=== PATIENT | female | born 1985 | race Two or more races ===

== ENCOUNTER 2018-09-25 22:10 | Emergency (ER) | payer OTHER ==
[~2018-09-25] VITALS: Ht 165.1 cm; Wt 84.0 kg
[2018-09-25 22:55] LABS: BASO # 0.1 x10^3/uL (0.0-0.2); BASO % 1 % (0-3); EOS # 0.2 x10^3/uL (0.0-0.7); EOS % 2 % (0-3); HEMATOCRIT 39.4 % (36.0-47.0); HEMOGLOBIN 14.1 g/dL (12.0-15.5); LYMPH % 27 % (24-48); MEAN CORPUSCULAR HEMOGLOBIN 31 pg (25-35); MEAN CORPUSCULAR HGB CONC 36 g/dL (31-37); MEAN CORPUSCULAR VOLUME 86 fL (79-100); MONO # 0.7 x10^3/uL (0.0-1.1); MONO % 6 % (0-9); NEUT # 7.2 x10^3uL (1.8-7.7); NEUT % 64 % (31-73); PLATELET COUNT 234 x10^3/uL (140-400); RED BLOOD COUNT 4.58 x10^6/uL (3.50-5.40); WHITE BLOOD COUNT 11.3 x10^3/uL (4.0-11.0)
[2018-09-25 23:00] LABS: BACTERIA,URINE FEW /HPF (0-FEW); BILIRUBIN,URINE NEG (NEG); CLARITY,URINE HAZY; COLOR,URINE YELLOW; GLUCOSE,URINE NEG (NEG); NITRITE,URINE NEG (NEG); RBC,URINE 0 /HPF (0-2); SQUAMOUS EPITHELIAL CELL,UR MOD /LPF; UROBILINOGEN,URINE 0.2 mg/dL (0.2 mg/dL)
[2018-09-25] MEDS ORDERED: MECLIZINE 12.5 MG TABLET. PO PRN (23:00)
[2018-09-25] MEDS ORDERED: IV NORMAL SALINE 1,000ML 1,000 ML IV SCH (23:00)
[2018-09-25] MEDS ORDERED: ONDANSETRON PF 4 MG/2 ML VIAL. IV ONE (23:00)
[2018-09-25 23:01] LABS: PREG TEST PT QUAL NEGATIVE (NEG)
--- NOTE | 2018-09-25 23:04 | PHYS DOC ---
Past History Past Medical History: Diabetes, Fibromyalgia, Migraines Past Surgical History: No Surgical History Alcohol Use: Occasionally Drug Use: None Adult General Chief Complaint Chief Complaint: NAUSEA/VOMITING/DIARRHEA HPI HPI Patient is a 33-year-old female who presents with complaint of 2 day history of dizziness. Patient states that onset of symptoms was very sudden and states that she feels like she is all over when she stands up. She states that when the dizziness really kicks and she gets nauseated and has had a few episodes of vomiting as well. She also admits to some loose stools. She denies any fever. She denies any headache and has had no lateralizing weakness or other neurological deficits. Patient states that she has had vertigo one time in the past but that episode was worse than this occasion. Review of Systems Review of Systems Constitutional: Denies fever or chills [] Eyes: Denies change in visual acuity, redness, or eye pain [] Respiratory: Denies cough or shortness of breath [] Cardiovascular: No additional information not addressed in HPI [] GI: Denies abdominal pain. Admits to nausea, vomiting and diarrhea [] Neurologic: Denies headache, focal weakness or sensory changes. Complains of dizziness. [] All other systems were reviewed and found to be within normal limits, except as documented in this note. Current Medications Current Medications Current Medications Medications (Trade) Dose Ordered Sig/Trevor Start Time Stop Time Status Last Admin Dose Admin Meclizine HCl (Antivert) 25 mg PRN Q6HRS PRN 09/25/18 23:00 Ondansetron HCl (Zofran) 4 mg 1X ONCE 09/25/18 23:00 09/25/18 23:01 DC Sodium Chloride 1,000 ml @ 1,000 mls/hr Q1H 09/25/18 23:00 09/25/18 23:59 Allergies Allergies Allergies Coded Allergies Type Severity Reaction Last Updated Verified morphine Allergy Severe Unknown 09/25/18 Yes Cephalosporins Allergy Intermediate Unknown 09/25/18 Yes hydrocodone Allergy Intermediate Unknown 09/25/18 Yes Penicillins Allergy Unknown Swelling 09/25/18 Yes Physical Exam Physical Exam Constitutional: Well developed, well nourished, no acute distress, non-toxic appearance. [] HENT: Normocephalic, atraumatic, bilateral external ears normal, oropharynx moist, no oral exudates, nose normal. [] Eyes: PERRLA, EOMI, conjunctiva normal, no discharge. [] Neck: Normal range of motion, no tenderness, supple, no stridor. [] Cardiovascular:Heart rate regular rhythm, no murmur [] Lungs & Thorax: Bilateral breath sounds clear to auscultation [] Abdomen: Bowel sounds normal, soft, no tenderness. [] Skin: Warm, dry, no erythema, no rash. [] Extremities: No tenderness, no cyanosis, no clubbing, ROM intact, no edema. [] Neurologic: Alert and oriented X 3, no focal deficits noted. [] Current Patient Data Vital Signs Vital Signs Date Time Temp Pulse Resp B/P (MAP) Pulse Ox O2 Delivery O2 Flow Rate FiO2 09/25/18 22:10 98.4 93 18 97 Room Air Lab Results Laboratory Tests Test 09/25/18 22:24 09/25/18 22:37 Urine Collection Type Unknown Urine Color Yellow Urine Clarity Hazy Urine pH 5.0 Urine Specific [place] 1.025 Urine Protein Neg (NEG-TRACE) Urine Glucose (UA) Neg mg/dL (NEG) Urine Ketones (Stick) Neg mg/dL (NEG) Urine Blood Neg (NEG) Urine Nitrite Neg (NEG) Urine Bilirubin Neg (NEG) Urine Urobilinogen Dipstick 0.2 mg/dL (0.2 mg/dL) Urine Leukocyte Esterase Trace (NEG) Urine RBC 0 /HPF (0-2) Urine WBC 1-4 /HPF (0-4) Urine Squamous Epithelial Cells Mod /LPF Urine Bacteria Few /HPF (0-FEW) White Blood Count 11.3 x10^3/uL (4.0-11.0) H Red Blood Count 4.58 x10^6/uL (3.50-5.40) Hemoglobin 14.1 g/dL (12.0-15.5) Hematocrit 39.4 % (36.0-47.0) Mean Corpuscular Volume 86 fL (79-100) Mean Corpuscular Hemoglobin 31 pg (25-35) Mean Corpuscular Hemoglobin Concent 36 g/dL (31-37) Red Cell Distribution Width 13.0 % (11.5-14.5) Platelet Count 234 x10^3/uL (140-400) Neutrophils (%) (Auto) 64 % (31-73) Lymphocytes (%) (Auto) 27 % (24-48) Monocytes (%) (Auto) 6 % (0-9) Eosinophils (%) (Auto) 2 % (0-3) Basophils (%) (Auto) 1 % (0-3) Neutrophils # (Auto) 7.2 x10^3uL (1.8-7.7) Lymphocytes # (Auto) 3.0 x10^3/uL (1.0-4.8) Monocytes # (Auto) 0.7 x10^3/uL (0.0-1.1) Eosinophils # (Auto) 0.2 x10^3/uL (0.0-0.7) Basophils # (Auto) 0.1 x10^3/uL (0.0-0.2) Serum Test, Qualitative Negative (NEG) EKG EKG [] Radiology/Procedures Radiology/Procedures [] Course & Med Decision Making Course & Med Decision Making Pertinent Labs and Imaging studies reviewed. (See chart for details) [] Dragon Disclaimer Dragon Disclaimer This electronic medical record was generated, in whole or in part, using a voice recognition dictation system. Departure Departure: Impression: Primary Impression: Benign paroxysmal vertigo Additional Impression: Dehydration Disposition: HOME, SELF-CARE Condition: STABLE Referrals: PCP,NO (PCP) Patient Instructions: Benign Positional Vertigo, Dehydration, Adult Scripts Scopolamine (TRANSDERM-SCOP) 1 Each Patch.td72 1 PATCH TP Q3DAYS PRN for DIZZINESS, #4 PATCH Prov: GABRIELLE DE LA O Jr. DO 09/25/18 Meclizine Hcl (MECLIZINE HCL) 25 Mg Tablet 1 TAB PO TID PRN for DIZZINESS, #30 TAB Prov: GABRIELLE DE LA O Jr. DO 09/25/18 Ondansetron Hcl (ZOFRAN) 4 Mg Tablet 4 MG PO Q6HRS PRN for NAUSEA, #12 TAB Prov: GABRIELLE DE LA O Jr. DO 09/25/18 Problem Qualifiers Primary Impression: Benign paroxysmal vertigo Laterality: unspecified laterality Qualified Codes: H81.10 - Benign paroxysmal vertigo, unspecified ear GABRIELLE DE LA O Jr. DO Sep 25, 2018 23:04
[2018-09-25 23:05] LABS: ALBUMIN 3.4 g/dL (3.4-5.0); ALBUMIN/GLOBULIN RATIO 0.9 (1.0-1.7); CREATININE 0.6 mg/dL (0.6-1.0); GFR 115.1; POTASSIUM 3.6 mmol/L (3.5-5.1); TOTAL BILIRUBIN 0.2 mg/dL (0.2-1.0)
[2018-09-25] MEDS ORDERED: MECL25TA3 PO (23:44)
[2018-09-25] MEDS ORDERED: SCOP1PAT11 TP (23:44)
[2018-09-25] MEDS ORDERED: ONDA4TAB7 PO (23:44)
[2018-09-25] MEDS ORDERED: SCOPOLAMINE 1.5MG PATCH. TD ONE (23:55)
[2018-09-25] MEDS ORDERED: diphenhydrAMINE 50 MG/ML VIAL IVP ONE (23:55)
[2018-09-25] MEDS ORDERED: METOCLOPRAMIDE HCL 10 MG/2 ML VIAL. IV ONE (23:55)
[2018-09-26 00:31] VITALS: BP 117/70
== END 2018-09-26 00:30 | disposition home or self-care (01) ==
LOC: ER 22:10
DX: H81.10 Benign paroxysmal vertigo, unspecified ear (principal); E86.0 Dehydration; E11.9 Type 2 diabetes mellitus without complications; M79.7 Fibromyalgia; G43.909 Migraine, unspecified, not intractable, without status migrainosus; Z88.5 Allergy status to narcotic agent; Z88.1 Allergy status to other antibiotic agents; Z88.0 Allergy status to penicillin
CPT/HCPCS: 36415; 80053; 81001; 84703; 85025; 87086; 96361; 96374; 96375; 99283; J1200; J2060; J2405; J2765; J8597; J7030

== ENCOUNTER 2018-12-03 08:07 | Emergency (ER) | payer OTHER ==
[~2018-12-03] VITALS: Ht 165.1 cm; Wt 83.3 kg
[2018-12-03 08:07] VITALS: BP 137/88
[~2018-12-03 08:07] MED LIST: MECL25TA3 PO; ONDA4TAB7 PO; SCOP1PAT11 TP
[2018-12-03] MEDS ORDERED: D-ME118S2 PO (08:47)
[2018-12-03] MEDS ORDERED: BENZ100C PO (08:47)
--- NOTE | 2018-12-03 08:48 | PHYS DOC ---
Past History Past Medical History: Diabetes, Fibromyalgia, Migraines Past Surgical History: No Surgical History Smoking: Non-smoker Alcohol Use: Occasionally Drug Use: None Adult General Chief Complaint Chief Complaint: SORE THROAT HPI HPI Patient is a 33-year-old female presents complaining of 4 days of sore throat. She has had some nasal congestion. A cough. Maximum temperature was 100.7. No relief with home ibuprofen and acetaminophen. Symptoms of been getting worse over time. Nonproductive cough. Patient was seen by her primary care physician who diagnosed her with an upper respiratory infection.[] Review of Systems Review of Systems Constitutional: Denies chills [] Eyes: Denies change in visual acuity, redness, or eye pain [] HENT: See history of present illness[] Respiratory: Denies shortness of breath on a see history of present illness [] Cardiovascular: No chest pain or palpitations[] GI: Denies abdominal pain, nausea, vomiting, bloody stools or diarrhea [] : Denies dysuria or hematuria [] Musculoskeletal: Denies back pain or joint pain [] Integument: Denies rash or skin lesions [] Neurologic: Denies headache, focal weakness or sensory changes [] Endocrine: Denies polyuria or polydipsia [] All other systems were reviewed and found to be within normal limits, except as documented in this note. Allergies Allergies Allergies Coded Allergies Type Severity Reaction Last Updated Verified morphine Allergy Severe Unknown 09/25/18 Yes Cephalosporins Allergy Intermediate Unknown 09/25/18 Yes hydrocodone Allergy Intermediate Unknown 09/25/18 Yes Penicillins Allergy Unknown Swelling 09/25/18 Yes Uncoded Allergies Type Severity Reaction Last Updated Verified adhesives Allergy Severe Rash 09/25/18 Physical Exam Physical Exam Constitutional: Well developed, well nourished, no acute distress, non-toxic appearance. [] HENT: Normocephalic, atraumatic, bilateral external ears normal, oropharynx moist, no oral exudates, nose with clear rhinorrhea, no sinus tenderness to percussion, posterior oral pharyngeal streaking is present.. [] Eyes: PERRLA, EOMI, conjunctiva normal, no discharge. [] Neck: Normal range of motion, no tenderness, supple, no stridor. [] Cardiovascular:Heart rate regular rhythm, no murmur [] Lungs & Thorax: Bilateral breath sounds clear to auscultation [] Abdomen: Bowel sounds normal, soft, no tenderness, no hepato-or splenomegaly, no pulsatile masses. [] Skin: Warm, dry, no erythema, no rash. [] Back: No tenderness, no CVA tenderness. [] Extremities: No tenderness, no cyanosis, no clubbing, ROM intact, no edema. [] Neurologic: Alert and oriented X 3, normal motor function, normal sensory function, no focal deficits noted. [] Psychologic: Affect normal, judgement normal, mood normal. [] Current Patient Data Vital Signs Vital Signs Date Time Temp Pulse Resp B/P (MAP) Pulse Ox O2 Delivery O2 Flow Rate FiO2 12/03/18 08:07 99.3 99 16 100 Room Air EKG EKG [] Radiology/Procedures Radiology/Procedures [] Course & Med Decision Making Course & Med Decision Making Pertinent Labs and Imaging studies reviewed. (See chart for details) Medical decision making: There is no evidence of meningitis, encephalitis, retropharyngeal abscess, peritonsillar abscess, nor systemic toxicity. Negative strep test. This seems to be more of an upper respiratory infection. We will provide symptomatic and supportive care. Chest chest findings with patient who voiced understanding. All questions were answered. She was discharged in improved condition.[] Dragon Disclaimer Dragon Disclaimer This electronic medical record was generated, in whole or in part, using a voice recognition dictation system. Departure Departure: Impression: Primary Impression: Upper respiratory infection Disposition: 01 HOME, SELF-CARE Condition: IMPROVED Referrals: ELIZA VILLAREAL MD (PCP) Follow-up in 2 days Patient Instructions: Upper Respiratory Infection, Adult Additional Instructions: Drink plenty fluids. Take medication as prescribed, as needed for symptom relief. Return to the ER if worsening pain, difficulty swallowing, difficulty breathing, or any other concerns. Scripts Benzonatate (TESSALON PERLE) 100 Mg Capsule 1 CAP PO TID for cough, #21 CAP Prov: VERA GUERRERO DO 12/03/18 D-Methorphan Hb/Prometh Hcl (PROMETHAZINE-DM SYRUP) 118 Ml Syrup 5 ML PO PRN Q4HRS for CONGESTION, #120 ML Prov: VERA GUERRERO DO 12/03/18 Problem Qualifiers Primary Impression: Upper respiratory infection URI type: unspecified URI Qualified Codes: J06.9 - Acute upper respiratory infection, unspecified VERA GUERRERO DO Dec 03, 2018 08:48
== END 2018-12-03 08:53 | disposition home or self-care (01) ==
LOC: ER 08:07
DX: J06.9 Acute upper respiratory infection, unspecified (principal); E11.9 Type 2 diabetes mellitus without complications; M79.7 Fibromyalgia; G43.909 Migraine, unspecified, not intractable, without status migrainosus; Z88.5 Allergy status to narcotic agent; Z88.1 Allergy status to other antibiotic agents; Z88.0 Allergy status to penicillin
CPT/HCPCS: 87070; 87880; 99283

== ENCOUNTER 2018-12-28 20:08 | Observation (INO) | payer OTHER ==
[~2018-12-28] VITALS: Ht 165.1 cm; Wt 83.2 kg
[~2018-12-28 20:08] MED LIST changes: +BENZ100C PO; +D-ME118S2 PO
--- NOTE | 2018-12-28 20:30 | ED.ADGEN ---
Past History Past Medical History: Anxiety, Diabetes, Fibromyalgia, High Cholesterol, Hypertension, Migraines, Other Past Medical History MITRAL ANN. PROLAPSE Past Surgical History: No Surgical History Smoking: Non-smoker Alcohol Use: Occasionally Drug Use: None Adult General Chief Complaint Chief Complaint ".. I ve been having chest pain ever since this morning.. we were out walking.. and it started to rain.. so we ran two blocks... and ever since then I ve had chest pain..." [facility] HPI Patient is a 33 year old female who presents with above hx and complaints on chest pain. Pain is localized in center chest. Pain initially was 8 or 9 out of 10. Pain is now rated 3-4 out of 10. There is some pleuritic component. Patient does have a history of mitral valve prolapse. Has had previous stress test with echocardiogram. Patient does have a history of diabetes, hypertension, elevated lipids, and normally follows with Dr. Villarela. Patient does have a history of migraines and 5 myalgia. There is family history elevated cholesterol and elevated blood pressure. Patient does not know specific family history because her parents do not speak to her anymore. Patient denies any illicit drug use. No recent travel. No history of trauma. No history immunosuppression. Review of Systems Review of Systems Constitutional: Denies fever or chills [] Eyes: Denies change in visual acuity, redness, or eye pain [] HENT: Denies nasal congestion or sore throat [] Respiratory: Denies cough or shortness of breath [] Cardiovascular: No additional information not addressed in HPI [] GI: Denies abdominal pain, nausea, vomiting, bloody stools or diarrhea [] : Denies dysuria or hematuria [] Musculoskeletal: Denies back pain or joint pain [] Integument: Denies rash or skin lesions [] Neurologic: Denies headache, focal weakness or sensory changes [] Endocrine: Denies polyuria or polydipsia [] All other systems were reviewed and found to be within normal limits, except as documented in this note. Family History Family History Hx. HTN, elevated Cholesterol- Hx. limited- no on speaking terms with family Current Medications Current Medications Current Medications Medications (Trade) Dose Ordered Sig/Trevor Start Time Stop Time Status Last Admin Dose Admin Aspirin (Children'S Aspirin) 324 mg 1X ONCE 12/28/18 20:45 12/28/18 20:46 DC 12/28/18 20:44 324 MG Ketorolac Tromethamine (Toradol 30mg Vial) 30 mg 1X ONCE 12/28/18 22:15 12/28/18 22:16 DC 12/28/18 22:03 30 MG Lactated Ringer's 1,000 ml @ 1,000 mls/hr Q1H 12/28/18 20:31 12/28/18 21:30 DC 12/28/18 20:31 1,000 MLS/HR Magnesium Sulfate 50 ml @ 25 mls/hr 1X ONCE 12/28/18 22:15 12/29/18 00:14 DC 12/28/18 22:27 25 MLS/HR Allergies Allergies Allergies Coded Allergies Type Severity Reaction Last Updated Verified morphine Allergy Severe Unknown 09/25/18 Yes Cephalosporins Allergy Intermediate Unknown 09/25/18 Yes hydrocodone Allergy Intermediate Unknown 09/25/18 Yes Penicillins Allergy Unknown Swelling 09/25/18 Yes Uncoded Allergies Type Severity Reaction Last Updated Verified adhesives Allergy Severe Rash 09/25/18 Physical Exam Physical Exam Constitutional: Moderate acute distress, non-toxic appearance. [] HENT: Normocephalic, atraumatic, bilateral external ears normal, oropharynx moist, no oral exudates, nose normal. [] Eyes: PERRLA, EOMI, conjunctiva normal, no discharge. [] Neck: Normal range of motion, no tenderness, supple, no stridor. [] Cardiovascular:Heart rate regular rhythm, no murmur [] Lungs & Thorax: Bilateral breath sounds equal at apexes on auscultation [] Abdomen: Bowel sounds normal, soft, no tenderness, no masses, no pulsatile masses. [] Skin: Warm, dry, no erythema, no rash. [] Back: No tenderness, no CVA tenderness. [] Extremities: No tenderness, no cyanosis, no clubbing, ROM intact, no edema. [] Neurologic: Alert and oriented X 3, normal motor function, normal sensory function, no focal deficits noted. [] Psychologic: Affect anxious, , judgement normal, mood normal. [] Current Patient Data Vital Signs Vital Signs Date Time Temp Pulse Resp B/P (MAP) Pulse Ox O2 Delivery O2 Flow Rate FiO2 12/28/18 22:18 85 16 129/78 (95) 96 Room Air 12/28/18 20:11 97.0 Lab Results Laboratory Tests Test 12/28/18 20:20 12/28/18 20:23 12/28/18 20:31 12/28/18 20:39 White Blood Count 9.4 x10^3/uL (4.0-11.0) Red Blood Count 4.81 x10^6/uL (3.50-5.40) Hemoglobin 14.4 g/dL (12.0-15.5) Hematocrit 42.6 % (36.0-47.0) Mean Corpuscular Volume 89 fL (79-100) Mean Corpuscular Hemoglobin 30 pg (25-35) Mean Corpuscular Hemoglobin Concent 34 g/dL (31-37) Red Cell Distribution Width 13.4 % (11.5-14.5) Platelet Count 247 x10^3/uL (140-400) Neutrophils (%) (Auto) 57 % (31-73) Lymphocytes (%) (Auto) 34 % (24-48) Monocytes (%) (Auto) 6 % (0-9) Eosinophils (%) (Auto) 3 % (0-3) Basophils (%) (Auto) 2 % (0-3) Neutrophils # (Auto) 5.3 x10^3uL (1.8-7.7) Lymphocytes # (Auto) 3.1 x10^3/uL (1.0-4.8) Monocytes # (Auto) 0.5 x10^3/uL (0.0-1.1) Eosinophils # (Auto) 0.2 x10^3/uL (0.0-0.7) Basophils # (Auto) 0.1 x10^3/uL (0.0-0.2) Troponin I Quantitative < 0.017 ng/mL (0-0.055) Prothrombin Time 9.9 SEC (9.4-11.4) Prothrombin Time INR 1.0 (0.9-1.1) PTT 26 SEC (23-33) D-Dimer (Graciela) < 0.19 mg/L (0.00-0.50) Urine Collection Type Unknown Urine Color Straw Urine Clarity Hazy Urine pH 6.0 Urine Specific [place] 1.025 Urine Protein Neg (NEG-TRACE) Urine Glucose (UA) 100 mg/dL (NEG) Urine Ketones (Stick) 15 mg/dL (NEG) Urine Blood Neg (NEG) Urine Nitrite Neg (NEG) Urine Bilirubin Neg (NEG) Urine Urobilinogen Dipstick 0.2 mg/dL (0.2 mg/dL) Urine Leukocyte Esterase Trace (NEG) Urine RBC 0 /HPF (0-2) Urine WBC Occ /HPF (0-4) Urine Squamous Epithelial Cells Occ /LPF Urine Bacteria 0 /HPF (0-FEW) Urine Opiates Screen Neg (NEG) Urine Methadone Screen Neg (NEG) Urine Barbiturates Neg (NEG) Urine Phencyclidine Screen Neg (NEG) Urine Amphetamine/Methamphetamine Neg (NEG) Urine Benzodiazepines Screen Neg (NEG) Urine Cocaine Screen Neg (NEG) Urine Cannabinoids Screen Neg (NEG) Urine Ethyl Alcohol Neg (NEG) Test 12/28/18 21:01 12/28/18 21:12 POC Urine HCG, Qualitative hcg negative (Negative) Sodium Level 136 mmol/L (136-145) Potassium Level 4.0 mmol/L (3.5-5.1) Chloride Level 103 mmol/L (98-107) Carbon Dioxide Level 25 mmol/L (21-32) Anion Gap 8 (6-14) Blood Urea Nitrogen 12 mg/dL (7-20) Creatinine 0.6 mg/dL (0.6-1.0) Estimated GFR (Cockcroft-Gault) 115.1 Glucose Level 209 mg/dL (70-99) H Calcium Level 9.0 mg/dL (8.5-10.1) Magnesium Level 1.6 mg/dL (1.8-2.4) L Total Bilirubin 0.2 mg/dL (0.2-1.0) Direct Bilirubin 0.1 mg/dL (0.0-0.2) Aspartate Amino Transferase (AST) 15 U/L (15-37) Alanine Aminotransferase (ALT) 25 U/L (14-59) Alkaline Phosphatase 77 U/L (46-116) Creatine Kinase 62 U/L (26-192) [id number]-M-Type Natriuretic Peptide 401 pg/mL (0-124) H Total Protein 6.2 g/dL (6.4-8.2) L Albumin 3.1 g/dL (3.4-5.0) L Lipase 132 U/L (73-393) EKG EKG Interpretation EKG shows a sinus rhythm at 96 bpm. Does have bimodal P-wave's. This was nonspecific anterior septal changes. But no findings acute STEMI of contralateral changes.[] Radiology/Procedures Radiology/Procedures [][address] [address] IMAGING REPORT Signed PATIENT: KINGSTON SAUL ACCOUNT: [id number] : 1985 LOCATION: ER AGE: 33 SEX: F EXAM STATUS: REG ER ORD. PHYSICIAN: JUANITO SMITH MD REASON: Chest Pain PROCEDURE: CHEST PA & LATERAL PA and lateral chest. HISTORY: Chest pain PA and lateral views were taken of the chest. Lungs are clear. Heart is normal in size. There is no pleural effusion. IMPRESSION: 1. No acute chest disease. Electronically signed by: Davy Murray MD (12/28/2018 9:54 PM) [facility] DICTATED AND SIGNED BY: DAVY MURRAY MD DATE: 12/28/18 3833 CC: JUANITO SMITH MD; ELIZA VILLAREAL MD ~ Course & Med Decision Making Course & Med Decision Making Pertinent Labs and Imaging studies reviewed. (See chart for details) Heart score 4-[address] Tj aguilar cardiology consult. [] Final Impression Final Impression 1.[] Chest pain 2. History of mitral valve prolapse 3. DM= glu 209 4. Elevated Cholesterol 5. Hypomagnesium 1.6 Dragon Disclaimer Dragon Disclaimer This electronic medical record was generated, in whole or in part, using a voice recognition dictation system. Discharge Summary Visit Information Final Diagnosis Problems Medical Problems: (1) Chest pain Status: Acute Brief Hospital Course Allergies Allergies Coded Allergies Type Severity Reaction Last Updated Verified morphine Allergy Severe Unknown 09/25/18 Yes Cephalosporins Allergy Intermediate Unknown 09/25/18 Yes hydrocodone Allergy Intermediate Unknown 09/25/18 Yes Penicillins Allergy Unknown Swelling 09/25/18 Yes Uncoded Allergies Type Severity Reaction Last Updated Verified adhesives Allergy Severe Rash 09/25/18 Vital Signs Vital Signs Date Time Temp Pulse Resp B/P (MAP) Pulse Ox O2 Delivery O2 Flow Rate FiO2 12/28/18 22:18 85 16 129/78 (95) 96 Room Air 12/28/18 20:11 97.0 Lab Results Laboratory Tests Test 12/28/18 20:20 12/28/18 20:23 12/28/18 20:31 12/28/18 20:39 White Blood Count 9.4 x10^3/uL (4.0-11.0) Red Blood Count 4.81 x10^6/uL (3.50-5.40) Hemoglobin 14.4 g/dL (12.0-15.5) Hematocrit 42.6 % (36.0-47.0) Mean Corpuscular Volume 89 fL (79-100) Mean Corpuscular Hemoglobin 30 pg (25-35) Mean Corpuscular Hemoglobin Concent 34 g/dL (31-37) Red Cell Distribution Width 13.4 % (11.5-14.5) Platelet Count 247 x10^3/uL (140-400) Neutrophils (%) (Auto) 57 % (31-73) Lymphocytes (%) (Auto) 34 % (24-48) Monocytes (%) (Auto) 6 % (0-9) Eosinophils (%) (Auto) 3 % (0-3) Basophils (%) (Auto) 2 % (0-3) Neutrophils # (Auto) 5.3 x10^3uL (1.8-7.7) Lymphocytes # (Auto) 3.1 x10^3/uL (1.0-4.8) Monocytes # (Auto) 0.5 x10^3/uL (0.0-1.1) Eosinophils # (Auto) 0.2 x10^3/uL (0.0-0.7) Basophils # (Auto) 0.1 x10^3/uL (0.0-0.2) Troponin I Quantitative < 0.017 ng/mL (0-0.055) Prothrombin Time 9.9 SEC (9.4-11.4) Prothromb Time International Ratio 1.0 (0.9-1.1) Activated Partial Thromboplast Time 26 SEC (23-33) D-Dimer (Graciela) < 0.19 mg/L (0.00-0.50) Urine Collection Type Unknown Urine Color Straw Urine Clarity Hazy Urine pH 6.0 Urine Specific [place] 1.025 Urine Protein Neg (NEG-TRACE) Urine Glucose (UA) 100 mg/dL (NEG) Urine Ketones (Stick) 15 mg/dL (NEG) Urine Blood Neg (NEG) Urine Nitrite Neg (NEG) Urine Bilirubin Neg (NEG) Urine Urobilinogen Dipstick 0.2 mg/dL (0.2 mg/dL) Urine Leukocyte Esterase Trace (NEG) Urine RBC 0 /HPF (0-2) Urine WBC Occ /HPF (0-4) Urine Squamous Epithelial Cells Occ /LPF Urine Bacteria 0 /HPF (0-FEW) Urine Opiates Screen Neg (NEG) Urine Methadone Screen Neg (NEG) Urine Barbiturates Neg (NEG) Urine Phencyclidine Screen Neg (NEG) Urine Amphetamine/Methamphetamine Neg (NEG) Urine Benzodiazepines Screen Neg (NEG) Urine Cocaine Screen Neg (NEG) Urine Cannabinoids Screen Neg (NEG) Urine Ethyl Alcohol Neg (NEG) Test 12/28/18 21:01 12/28/18 21:12 Bedside Urine HCG, Qualitative hcg negative (Negative) Sodium Level 136 mmol/L (136-145) Potassium Level 4.0 mmol/L (3.5-5.1) Chloride Level 103 mmol/L (98-107) Carbon Dioxide Level 25 mmol/L (21-32) Anion Gap 8 (6-14) Blood Urea Nitrogen 12 mg/dL (7-20) Creatinine 0.6 mg/dL (0.6-1.0) Estimated GFR (Cockcroft-Gault) 115.1 Glucose Level 209 mg/dL (70-99) Calcium Level 9.0 mg/dL (8.5-10.1) Magnesium Level 1.6 mg/dL (1.8-2.4) Total Bilirubin 0.2 mg/dL (0.2-1.0) Direct Bilirubin 0.1 mg/dL (0.0-0.2) Aspartate Amino Transf (AST/SGOT) 15 U/L (15-37) Alanine Aminotransferase (ALT/SGPT) 25 U/L (14-59) Alkaline Phosphatase 77 U/L (46-116) Creatine Kinase 62 U/L (26-192) [id number]-[id number]-Type Natriuretic Peptide 401 pg/mL (0-124) Total Protein 6.2 g/dL (6.4-8.2) Albumin 3.1 g/dL (3.4-5.0) Lipase 132 U/L (73-393) Brief Hospital Course Ms. Saul is a 33 old female who presented with chest pain. Admitted Dr. Spencer with cardiology consult. Discharge Information Condition at Discharge: Stable Dischare Medications Current Medications Aspirin (Children'S Aspirin) 324 mg 1X ONCE PO Last administered on 12/28/18at 20:44; Admin Dose 324 MG; Start 12/28/18 at 20:45; Stop 12/28/18 at 20:46; Status DC Lactated Ringer's 1,000 ml @ 1,000 mls/hr Q1H IV Last administered on 12/28/18at 20:31; Admin Dose 1,000 MLS/HR; Start 12/28/18 at 20:31; Stop 12/28/18 at 21:30; Status DC Ketorolac Tromethamine (Toradol 30mg Vial) 30 mg 1X ONCE IV Last administered on 12/28/18at 22:03; Admin Dose 30 MG; Start 12/28/18 at 22:15; Stop 12/28/18 at 22:16; Status DC Magnesium Sulfate 50 ml @ 25 mls/hr 1X ONCE IV Last administered on 12/28/18at 22:27; Admin Dose 25 MLS/HR; Start 12/28/18 at 22:15; Stop 12/29/18 at 00:14; Status DC Active Scripts Active Dragon Disclaimer This chart was dictated in whole or in part using Voice Recognition software in a busy, high-work load, and often noisy Emergency Department environment. It may contain unintended and wholly unrecognized errors or omissions. JUANITO SMITH MD Dec 28, 2018 20:30
[2018-12-28] MEDS ORDERED: IV RINGERS SOLUTION,LACTATED 1,000 ML IV SCH ×2 (20:31→23:00)
[2018-12-28] MEDS ORDERED: ASPIRIN 81 MG TAB.CHEW PO ONE (20:45)
[2018-12-28 20:48] LABS: BASO # 0.1 x10^3/uL (0.0-0.2); BASO % 2 % (0-3); EOS # 0.2 x10^3/uL (0.0-0.7); EOS % 3 % (0-3); HEMATOCRIT 42.6 % (36.0-47.0); HEMOGLOBIN 14.4 g/dL (12.0-15.5); LYMPH # 3.1 x10^3/uL (1.0-4.8); LYMPH % 34 % (24-48); MEAN CORPUSCULAR HEMOGLOBIN 30 pg (25-35); MEAN CORPUSCULAR HGB CONC 34 g/dL (31-37); MEAN CORPUSCULAR VOLUME 89 fL (79-100); MONO # 0.5 x10^3/uL (0.0-1.1); MONO % 6 % (0-9); NEUT # 5.3 x10^3uL (1.8-7.7); NEUT % 57 % (31-73); PLATELET COUNT 247 x10^3/uL (140-400); RED BLOOD COUNT 4.81 x10^6/uL (3.50-5.40); RED CELL DISTRIBUTION WIDTH 13.4 % (11.5-14.5); WHITE BLOOD COUNT 9.4 x10^3/uL (4.0-11.0)
[2018-12-28 21:12] LABS: BARBITURATES NEG (NEG); BENZODIAZEPINES NEG (NEG); CANNABINOIDS NEG (NEG); COCAINE NEG (NEG); METHADONE NEG (NEG); OPIATES NEG (NEG); PHENCYCLIDINE NEG (NEG)
[2018-12-28 21:13] LABS: AMPHETAMINE/METHAMPHETAMINE NEG (NEG)
[2018-12-28 21:15] LABS: BACTERIA,URINE 0 /HPF (0-FEW); BILIRUBIN,URINE NEG (NEG); CLARITY,URINE HAZY; COLOR,URINE STRAW; GLUCOSE,URINE 100 mg/dL (NEG); NITRITE,URINE NEG (NEG); RBC,URINE 0 /HPF (0-2); SQUAMOUS EPITHELIAL CELL,UR OCC /LPF; UROBILINOGEN,URINE 0.2 mg/dL (0.2 mg/dL); WBC,URINE OCC /HPF (0-4)
[2018-12-28 21:35] LABS: ALBUMIN 3.1 g/dL (3.4-5.0); CREATININE 0.6 mg/dL (0.6-1.0); DIRECT BILIRUBIN 0.1 mg/dL (0.0-0.2); GFR 115.1; MAGNESIUM 1.6 mg/dL (1.8-2.4); TOTAL BILIRUBIN 0.2 mg/dL (0.2-1.0); TOTAL PROTEIN 6.2 g/dL (6.4-8.2)
--- NOTE | 2018-12-28 21:57 | RAD ---
PA and lateral chest. HISTORY: Chest pain PA and lateral views were taken of the chest. Lungs are clear. Heart is normal in size. There is no pleural effusion. IMPRESSION: 1. No acute chest disease. Electronically signed by: Davy Murray MD (12/28/2018 9:54 PM) [facility]
[2018-12-28] MEDS ORDERED: KETOROLAC 30 MG/ML VIAL. IV ONE (22:15)
[2018-12-28] MEDS ORDERED: MAGNESIUM SULFATE 2GM 50 ML IV ONE (22:15)
[2018-12-28] MEDS ORDERED: ONDANSETRON PF 4 MG/2 ML VIAL. IV PRN (23:00)
[2018-12-28] MEDS ORDERED: diphenhydrAMINE 50 MG/ML VIAL IVP PRN (23:00)
[2018-12-28] MEDS: IV RINGERS SOLUTION,LACTATED 1,000 ML IV SCH (23:00)
[2018-12-28] MEDS: NITROGLYCERIN OINT 1 GM PACKET. TP SCH (23:13)
[2018-12-28] MEDS: HYDROmorphone PF 2 MG/ML VIAL IV PRN (23:13)
[2018-12-29 00:14] VITALS: BP 123/84
[2018-12-29] MEDS ORDERED: FIORICET (00:58)
[2018-12-29] MEDS ORDERED: METFORMIN (00:58)
[2018-12-29] MEDS: IV RINGERS SOLUTION,LACTATED 1,000 ML IV SCH (01:15)
[2018-12-29] MEDS ORDERED: METF500S5 PO (01:21)
[2018-12-29 05:38] VITALS: BP 106/64
[2018-12-29 06:15] LABS: BASO % 1 % (0-3); EOS # 0.3 x10^3/uL (0.0-0.7); EOS % 4 % (0-3); HEMATOCRIT 37.1 % (36.0-47.0); HEMOGLOBIN 12.7 g/dL (12.0-15.5); LYMPH % 39 % (24-48); MEAN CORPUSCULAR HEMOGLOBIN 30 pg (25-35); MEAN CORPUSCULAR HGB CONC 34 g/dL (31-37); MEAN CORPUSCULAR VOLUME 89 fL (79-100); MONO # 0.5 x10^3/uL (0.0-1.1); MONO % 7 % (0-9); NEUT # 3.8 x10^3uL (1.8-7.7); NEUT % 50 % (31-73); PLATELET COUNT 200 x10^3/uL (140-400); RED BLOOD COUNT 4.17 x10^6/uL (3.50-5.40); RED CELL DISTRIBUTION WIDTH 13.3 % (11.5-14.5); WHITE BLOOD COUNT 7.7 x10^3/uL (4.0-11.0)
[2018-12-29] MEDS: NITROGLYCERIN OINT 1 GM PACKET. TP SCH ×2 (06:15→14:15)
[2018-12-29 06:26] LABS: CALCIUM 8.5 mg/dL (8.5-10.1); CREATININE 0.6 mg/dL (0.6-1.0); GFR 115.1
[2018-12-29 07:11] VITALS: BP 115/75
[2018-12-29] MEDS ORDERED: IV NORMAL SALINE 1,000ML 1,000 ML IV SCH (08:00)
[2018-12-29] MEDS: ACETAMINOPHEN 325 MG TABLET PO PRN ×2 (08:04→12:18)
[2018-12-29 09:43] VITALS: BP 129/82
[2018-12-29] MEDS: HYDROmorphone PF 2 MG/ML VIAL IV PRN ×2 (10:49→14:16)
[2018-12-29] MEDS ORDERED: MAGNESIUM OXIDE 400 MG TABLET PO SCH (14:30)
[2018-12-29 14:49] VITALS: BP 124/85
--- NOTE | 2018-12-29 15:05 | CARD ---
MR#: [id number] Date of Study: 12/29/2018 Ordering Physician: MARY JANE MARY, Referring Physician: JAYDA KESSLER, Tech: Maryanne Tamez APPROVED REPORT EXAM: Two-dimensional and M-mode echocardiogram with Doppler and color Doppler. Other Information Quality : AverageHR: 80bpm Rhythm : NSR INDICATION Dyspnea Chest Pain RISK FACTORS Hypertension Hyperlipidemia Diabetes 2D DIMENSIONS RVDd2.6 (2.9-3.5cm)Left Atrium(2D)3.3 (1.6-4.0cm) IVSd0.8 (0.7-1.1cm)Aortic Root(2D)2.6 (2.0-3.7cm) LVDd4.5 (3.9-5.9cm)LVOT Diameter1.9 (1.8-2.4cm) PWd0.9 (0.7-1.1cm)LVDs3.0 (2.5-4.0cm) FS (%) 32.5 %SV56.9 ml LVEF(%)61.0 (>50%) Aortic Valve AoV Peak Anthony.151.7cm/sAoV VTI32.3cm AO Peak GR.9.2mmHgLVOT Peak Anthony.122.7cm/s LVOT VTI 24.45cmAO Mean GR.5mmHg VERONICA (VMAX)2.78ik1BGO (VTI)2.25cm2 Mitral Valve MV E Jqbeprkn854.4cm/sMV DECEL YVOQ636ew MV A Jhksfdug30.1cm/sE/A Ratio1.8 Pulmonary Valve PV Peak Guufygdi10.2cm/sPV Peak Grad.4mmHg Tricuspid Valve TR P. Kunkeglp522sn/sRAP JTNTVRKF3puOr TR Peak Gr.16ypPmEKPU00foTx Pulmonary Vein S1 Hmsdmuwv55.5cm/sD2 Rkypzlzf22.2cm/s LEFT VENTRICLE The left ventricle is normal size. There is normal left ventricular wall thickness. The left ventricu lar systolic function is normal and the ejection fraction is within normal range. The Ejection Fracti on is >55%. There is normal LV segmental wall motion. The left ventricular diastolic function and michael ling is normal for age. RIGHT VENTRICLE The right ventricle is normal size. There is normal right ventricular wall thickness. The right ventr icular systolic function is normal. ATRIA The left atrium size is normal. The right atrium size is normal. The interatrial septum is intact wit h no evidence for an atrial septal defect or patent foramen ovale as noted on 2-D or Doppler imaging. AORTIC VALVE The aortic valve is normal in structure and function. Doppler and Color Flow revealed no significant aortic regurgitation. There is no significant aortic valvular stenosis. MITRAL VALVE The mitral valve is normal in structure and function. There is no evidence of mitral valve prolapse. There is no mitral valve stenosis. Doppler and Color-flow revealed trace mitral regurgitation. TRICUSPID VALVE The tricuspid valve is normal in structure and function. Doppler and Color Flow revealed trace tricus pid regurgitation with an estimated PAP of 30 mmHg. There is no tricuspid valve stenosis. PULMONIC VALVE The pulmonary valve is normal in structure and function. Doppler and Color Flow revealed trace pulmon ic valvular regurgitation. There is no pulmonic valvular stenosis. GREAT VESSELS The aortic root is normal in size. The IVC is normal in size and collapses >50% with inspiration. PERICARDIAL EFFUSION There is no evidence of significant pericardial effusion. Critical Notification Critical Value: No <Conclusion> The left ventricular systolic function is normal and the ejection fraction is within normal range. Th e Ejection Fraction is >55%. There is normal LV segmental wall motion. Signed by : Mary Jane Mary, Electronically Approved : 12/29/2018 15:04:54
--- NOTE | 2018-12-29 17:47 | SSS ---
ADMIT DATE: 12/29/2018 HISTORY OF PRESENT ILLNESS: The patient is a 33-year-old female patient who came to the Emergency Room complaining of chest pain, shortness of breath, and palpitations, started when she was out walking and started to rain, so she ran two blocks and it was since she had this chest pain. Her pain was initially about 8 or 9/10. By the time she arrived to the Emergency Room, came down to 3-4/10. There is some pleuritic component. The patient does have a history of mitral valve prolapse. She had had a previous stress test with echocardiogram. The patient does have a history of diabetes, hypertension, hyperlipidemia and normally follows with Dr. Javier. She has history of migraine and fibromyalgia; however, she was investigated in the Emergency Room and her first set of cardiac enzymes showed troponin to be less than 0.017. Her blood sugar was slightly high and a low magnesium. She was admitted and had 2 more sets of cardiac enzymes and that both negative for rule out myocardial infarction. EKG showed that she was in sinus rhythm at a rate of 96 beats per minute, but there was no evidence of ST segment elevation. She has had an echocardiogram done, which basically showed that her left ventricular systolic function is normal with an ejection fraction within normal range. Ejection fraction was more than 55% with normal left ventricular segmental wall motion and her aortic root is normal in size. IVC is normal in size and collapses more than 50% with inspiration. No pericardial effusion. Mitral valve is normal in structure and function. There is no evidence of mitral valve prolapse. There is no mitral valve stenosis and Doppler and color flow revealed trace mitral regurgitation. Dr. Mary recommended that the patient can be discharged to follow with him in his office in 2 weeks' time. PAST SURGICAL HISTORY: Significant for cyst removal from her lower back. ALLERGIES: She is allergic to PENICILLIN, MORPHINE, HYDROCODONE, CEPHALOSPORINS and ADHESIVES. MEDICATIONS: She is currently on Fioricet 1 tablet every 4 hours and metformin 500 mg twice a day. FAMILY HISTORY: She has one sister who is older and apparently has diabetes. Father is alive at age of 62, has diabetes and hypertension. Mother is alive and has hypertension, hyperlipidemia. SOCIAL HISTORY: She lives with her significant other. She has two daughters. She does not smoke, drinks alcohol occasionally. 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 REVIEW OF SYSTEMS: The patient denied any blurring of vision, cataract, glaucoma or macular degeneration. Denied any earache, tinnitus or sensorineural deafness. Denied any nausea, vomiting, diarrhea or constipation. Denied any hematemesis, melena or hematochezia. Denied any dysuria, frequency or hematuria. Did complain of chest pain and shortness of breath as well as palpitations, denied any orthopnea or paroxysmal nocturnal dyspnea. Denied any cough, phlegm or hemoptysis. PHYSICAL EXAMINATION: VITAL SIGNS: On arrival to the hospital, her heart rate was 80, blood pressure was 123/84, temperature was 98.6, respiratory rate 20, and oxygen saturation was 96%. HEENT: Examination of the head, eyes, ears, nose and throat showed normocephalic, atraumatic. NECK: Supple. HEART: Showed normal first and second heart sounds with no gallop, rub or murmur. CHEST: Clear to auscultation. No crepitation or rhonchi. ABDOMEN: Distended, soft, nontender. NEUROLOGIC: She is awake, alert, responding appropriately. All cranial nerves intact. EXTREMITIES: She moves extremities without difficulty. She ambulates without assistance or assistive devices. LABORATORY DATA: Her lab work on admission showed a white cell count 9400, hemoglobin 14, hematocrit 42, MCV 89 and platelet count 247,000. Her prothrombin time was 9.9, INR of 1, aPTT was 26. D-dimer was 0.19. Her chemistry showed a serum sodium 136, potassium 4, chloride 103, bicarbonate 25, anion gap of 8, BUN 12, creatinine 0.6, estimated GFR was 115 mL per minute. Her glucose was 209, calcium was 9, magnesium was 1.6. Total bilirubin, AST, ALT, alkaline phosphatase were normal. Her beta-natriuretic peptide was 400 and her total protein was 6.2, albumin 3.1, lipase 131. She has 3 sets of cardiac enzymes that were negative. The patient was discharged home to continue on her metformin 500 mg twice a day, Fioricet 1 tablet every 4 hours as well as hydrocodone 5/325 one every 4 hours. FINAL DISCHARGE DIAGNOSES: Atypical chest pain, type 2 diabetes, migraine headache. JAYDA KESSLER MD DR: JIM/shavon JOB#: [id number] / [id number]
[2018-12-29 18:17] LABS: THYROID STIM HORMONE (TSH) 1.406 uIU/mL (0.358-3.740)
--- NOTE | 2019-01-13 06:29 | EKG ---
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
--- NOTE | 2019-01-13 13:34 | EKG ---
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
== END 2018-12-29 16:13 | disposition home or self-care (01) ==
LOC: ER 20:08 → INTOOBSV 22:30 → 1 SOUTH 22:30
PROVIDERS: ADMIT Internal Medicine; ATTEND Internal Medicine
DX: R07.89 Other chest pain (principal); E11.9 Type 2 diabetes mellitus without complications; G43.909 Migraine, unspecified, not intractable, without status migrainosus; E78.00 Pure hypercholesterolemia, unspecified; M79.7 Fibromyalgia; I34.1 Nonrheumatic mitral (valve) prolapse; E78.5 Hyperlipidemia, unspecified; F41.9 Anxiety disorder, unspecified; I10 Essential (primary) hypertension; Z82.49 Family history of ischemic heart disease and other diseases of the circulatory system; Z83.3 Family history of diabetes mellitus; E83.42 Hypomagnesemia
CPT/HCPCS: 36415; 71046; 80048; 80061; 80076; 80307; 81001; 81025; 82550; 83690; 83735; 83880; 84443; 84484; 85025; 85379; 85610; 85730; 87086; 93005; 93306; 96365; 96366; 96375; 96376; 99284; G0378; J1170; J1885; J3475; J7120; G0379; J7030

== ENCOUNTER 2019-02-14 08:10 | Emergency (ER) | payer OTHER ==
[~2019-02-14] VITALS: Ht 165.1 cm; Wt 80.7 kg
[~2019-02-14 08:10] MED LIST changes: -D-ME118S2 PO; +FIORICET; +METF500S5 PO; +METFORMIN; +PROM118S9 PO
--- NOTE | 2019-02-14 08:28 | PHYS DOC ---
Past History Past Medical History: Anxiety, Diabetes, Fibromyalgia, High Cholesterol, Hypertension, Migraines, Other Past Surgical History: No Surgical History Smoking: Non-smoker Alcohol Use: None Drug Use: None Adult General Chief Complaint Chief Complaint: HEADACHE HPI HPI Patient is a 33-year-old female presents with complaint of severe headache that started 2 days ago. She states that pain has progressively worsened. She states that it is primarily in the front of her head and initially the headache was throbbing in nature but currently it is just constant. She admits to photophobia as well as phonophobia and has had nausea and vomiting. She states that she took some Fioricet but had no relief. She states that exacerbating factors are loud noises and bright light. She rates pain at a 9 out of 10.[] Review of Systems Review of Systems Constitutional: Denies fever or chills [] Eyes: Denies change in visual acuity, redness, or eye pain [] Respiratory: Denies cough or shortness of breath [] Cardiovascular: No additional information not addressed in HPI [] GI: Denies abdominal pain, nausea, vomiting or diarrhea [] Integument: Denies rash or skin lesions [] Neurologic: Complains of headache without focal weakness or sensory changes [] All other systems were reviewed and found to be within normal limits, except as documented in this note. Allergies Allergies Allergies Coded Allergies Type Severity Reaction Last Updated Verified morphine Allergy Severe Unknown 02/14/19 Yes Cephalosporins Allergy Intermediate Unknown 02/14/19 Yes hydrocodone Allergy Intermediate Unknown 02/14/19 Yes Penicillins Allergy Unknown Swelling 02/14/19 Yes Uncoded Allergies Type Severity Reaction Last Updated Verified adhesives Allergy Severe Rash 09/25/18 Physical Exam Physical Exam Constitutional: Well developed, well nourished, in mild distress. [] HENT: Normocephalic, atraumatic, bilateral external ears normal, oropharynx moist, no oral exudates, nose normal. [] Eyes: PERRLA, EOMI, conjunctiva normal, no discharge. [] Neck: Normal range of motion, no tenderness, supple, no stridor. [] Cardiovascular: Regular rate and rhythm[] Lungs & Thorax: Bilateral breath sounds clear to auscultation [] Abdomen: Bowel sounds normal, soft. [] Skin: Warm, dry, no erythema, no rash. [] Extremities: No tenderness, no cyanosis, no clubbing, ROM intact. [] Neurologic: Alert and oriented X 3, no focal deficits noted. [] EKG EKG [] Radiology/Procedures Radiology/Procedures [] Course & Med Decision Making Course & Med Decision Making Pertinent Labs and Imaging studies reviewed. (See chart for details) [] Dragon Disclaimer Dragon Disclaimer This electronic medical record was generated, in whole or in part, using a voice recognition dictation system. Departure Departure: Impression: Primary Impression: Migraine Disposition: 01 HOME, SELF-CARE Condition: STABLE Referrals: ELIZA VILLAREAL MD (PCP) Patient Instructions: Migraine Headache Problem Qualifiers Primary Impression: Migraine Migraine type: unspecified Status migrainosus presence: without status migrainosus Intractability: not intractable Qualified Codes: G43.909 - Migraine, unspecified, not intractable, without status migrainosus GABRIELLE DE LA O Jr. DO Feb 14, 2019 08:28
[2019-02-14] MEDS ORDERED: METOCLOPRAMIDE HCL 10 MG/2 ML VIAL. IM ONE (08:30)
[2019-02-14] MEDS ORDERED: diphenhydrAMINE 50 MG/ML VIAL IM ONE (08:30)
[2019-02-14] MEDS ORDERED: BUTORPHANOL 2 MG VIAL. IM ONE (08:30)
[2019-02-14] MEDS ORDERED: SUMAtriptan SUCC 6 MG/0.5 ML VIAL SQ ONE (08:30)
[2019-02-14 09:10] VITALS: BP 116/65
== END 2019-02-14 09:10 | disposition home or self-care (01) ==
LOC: ER 08:10
DX: G43.909 Migraine, unspecified, not intractable, without status migrainosus (principal); E11.9 Type 2 diabetes mellitus without complications; M79.7 Fibromyalgia; E78.00 Pure hypercholesterolemia, unspecified; I10 Essential (primary) hypertension; Z88.5 Allergy status to narcotic agent; Z88.1 Allergy status to other antibiotic agents; Z88.0 Allergy status to penicillin
CPT/HCPCS: 96372; 99284; J0595; J1200; J2765

== ENCOUNTER 2019-12-19 15:56 | Emergency (ER) | payer OTHER ==
[~2019-12-19] VITALS: Ht 170.2 cm; Wt 79.0 kg
[~2019-12-19 15:56] MED LIST changes: +MECL-75 PO; -MECL25TA3 PO; +PROM118S10 PO; -PROM118S9 PO
[2019-12-19 16:03] VITALS: BP 139/80
--- NOTE | 2019-12-19 16:17 | PHYS DOC ---
Past History Past Medical History: Diabetes, Fibromyalgia, Migraines Past Surgical History: Other Smoking: Non-smoker Alcohol Use: Occasionally Drug Use: None General Adult EDM: Chief Complaint: BLOOD SUGAR PROBLEM HPI: HPI: Patient is a [age] year old [sex] who presents with [] Review of Systems: Review of Systems: Constitutional: Denies fever or chills Eyes: Denies redness or eye pain HENT: Denies nasal congestion or sore throat Respiratory: Denies cough or shortness of breath Cardiovascular: Denies chest pain or palpitations GI: Denies abdominal pain, nausea, or vomiting : Denies dysuria or hematuria Musculoskeletal: Denies back pain or joint pain Integument: Denies rash or skin lesions Neurologic: Denies headache, focal weakness or sensory changes Complete systems were reviewed and found to be within normal limits, except as documented in this note. Allergies: Allergies: Allergies Coded Allergies Type Severity Reaction Last Updated Verified morphine Allergy Severe Unknown 02/14/19 Yes Cephalosporins Allergy Intermediate Unknown 02/14/19 Yes hydrocodone Allergy Intermediate Unknown 02/14/19 Yes Penicillins Allergy Unknown Swelling 02/14/19 Yes sumatriptan Adverse Reaction Unknown 02/14/19 Yes Uncoded Allergies Type Severity Reaction Last Updated Verified adhesives Allergy Severe Rash 09/25/18 Physical Exam: PE: Constitutional: Well developed, well nourished, no acute distress, non-toxic appearance HENT: Normocephalic, atraumatic, oropharynx moist Eyes: PERRL, EOMI, conjunctiva normal, no discharge Neck: Normal range of motion, no tenderness, supple Cardiovascular: Heart rate normal, regular rhythm Lungs & Thorax: Bilateral breath sounds clear to auscultation, no wheezing Abdomen: Soft, no tenderness Skin: Warm, dry, no erythema, no rash Back: No tenderness, no CVA tenderness Extremities: No tenderness, ROM intact, no edema Neurologic: Alert and oriented X 3, normal motor function, normal sensory function, no focal deficits noted Psychologic: Affect normal, judgment normal Current Patient Data: Labs: Laboratory Tests Test 12/19/19 16:06 Glucose (Fingerstick) 355 mg/dL (70-99) H EKG: EKG: [] Radiology/Procedures: Radiology/Procedures: [] Course & Med Decision Making: Course & Med Decision Making Pertinent Lab studies reviewed. (See chart for details) Patient stable for discharge with outpatient follow-up with PCP. Discussed findings and plan with patient, who acknowledges understanding and agreement. Issa Disclaimer: Issa Disclaimer: This electronic medical record was generated, in whole or in part, using a voice recognition dictation system. Departure Departure: Impression: Primary Impression: Hyperglycemia Disposition: 01 HOME/RESIDENCE PRIOR TO ADM Condition: STABLE Referrals: ELIZA VILLAREAL MD (PCP) Patient Instructions: Diet - 2000 Calorie Diabetic, Hyperglycemia, Whox-xr-[id number] Additional Instructions: Please take your diabetes medication as prescribed. Follow closely with your doctor as you might need to have your medication adjusted. Justification of Admission: Justification of Admission: Justification of Admission Dx: N/A TOMAS ALBERTO DO Dec 19, 2019 16:17
== END 2019-12-19 16:33 | disposition home or self-care (01) ==
LOC: ER 15:56
DX: E11.65 Type 2 diabetes mellitus with hyperglycemia (principal); M79.7 Fibromyalgia; G43.909 Migraine, unspecified, not intractable, without status migrainosus; Z88.0 Allergy status to penicillin; Z88.1 Allergy status to other antibiotic agents; Z88.5 Allergy status to narcotic agent; Z88.8 Allergy status to other drugs, medicaments and biological substances
CPT/HCPCS: 82947; 99283

== ENCOUNTER → 2020-02-12 | Outpatient (CLI) | payer OTHER ==
[~2020-02-12] MED LIST changes: +CIPR500T PO; +CYCL-331 PO; +EMPA10TA PO; +METF10007 PO; +METR500T PO; +NORE1TAB26 PO; +PROP40TA PO
== END ==
LOC: LAB 12:37
PROVIDERS: ATTEND Nurse Anesthetist, Certified Registered
DX: Z20.828 Contact with and (suspected) exposure to other viral communicable diseases (principal)
CPT/HCPCS: U0003-CS

== ENCOUNTER → 2020-02-15 | Day surgery (SDC) | payer OTHER ==
[~2020-02-15] MED LIST changes: +IPRATRPIUM/ALBUTEROL 0.5/2.5MG 3 ML NEBU. NEB PRN; +IV RINGERS SOLUTION,LACTATED 1,000 ML IV SCH; +MIDAZOLAM HCL PF 2 MG/2 ML VIAL. IV ONE; +PROPOFOL 10,000 MCG/ML (20ML) VIAL IV ONE
[2020-02-15 10:10] VITALS: BP 127/88
== END | disposition home or self-care (01) ==
LOC: SURG 07:51
PROVIDERS: ATTEND Internal Medicine Gastroenterology
DX: K52.9 Noninfective gastroenteritis and colitis, unspecified (principal); K63.89 Other specified diseases of intestine; K21.9 Gastro-esophageal reflux disease without esophagitis; F41.9 Anxiety disorder, unspecified; F32.9 Major depressive disorder, single episode, unspecified; E11.9 Type 2 diabetes mellitus without complications; Z98.890 Other specified postprocedural states; Z88.8 Allergy status to other drugs, medicaments and biological substances; Z88.1 Allergy status to other antibiotic agents; Z79.84 Long term (current) use of oral hypoglycemic drugs; Z79.899 Other long term (current) drug therapy; Z88.0 Allergy status to penicillin
CPT/HCPCS: 45380; 81025; 82947; 88305; J2704; J7120

== ENCOUNTER → 2020-07-08 | Outpatient (CLI) | payer BC, OTHER ==
[2020-02-15 10:10] VITALS: BP 127/88
[~2020-07-08] MED LIST changes: -IPRATRPIUM/ALBUTEROL 0.5/2.5MG 3 ML NEBU. NEB PRN; -IV RINGERS SOLUTION,LACTATED 1,000 ML IV SCH; -MIDAZOLAM HCL PF 2 MG/2 ML VIAL. IV ONE; -PROPOFOL 10,000 MCG/ML (20ML) VIAL IV ONE
--- NOTE | 2020-07-08 13:11 | RAD ---
EXAM: Nuclear gastric emptying scan. HISTORY: Nausea. COMPARISON: None. TECHNIQUE: Serial static images were obtained over the stomach following oral administration of 1 mCi 99m-Tc sulfur colloid. FINDINGS: The stomach empties into the small bowel without evidence of reflux in the area of the esop hagus. There is 54 percent retained tracer activity within stomach at one hour (normal 34.8 percent t o 91 percent). There is 25 percent retained tracer activity within stomach at 2 hours (normal 2.7 per cent to 60 percent). There is 16 percent retained tracer activity within stomach at 3 hours (normal 0 .5 percent to 28 percent). There is 0 percent retained tracer activity within stomach at 4 hours (nor mal 0.0 percent to 10 percent). The estimated time for half emptying of gastric contents, i.e. 'gastric emptying time' is 64 minutes (normal is 66 +/- 22 minutes). IMPRESSION: Normal gastric emptying scan. Electronically signed by: Ivette Hoang MD (07/08/2020 1:09 PM) [id number]
== END ==
LOC: NM 08:05
PROVIDERS: ATTEND Nurse Practitioner Adult Health
DX: R11.0 Nausea (principal); R10.9 Unspecified abdominal pain
CPT/HCPCS: 78264; A9541

== ENCOUNTER → 2020-08-26 | Outpatient (CLI) | payer BC ==
[2020-02-15 10:10] VITALS: BP 127/88
[~2020-08-26] MED LIST changes: -CIPR500T PO; +CIPR500T2 PO
--- NOTE | 2020-08-26 09:47 | RAD ---
EXAM: Abdomen sonogram. HISTORY: Pain. TECHNIQUE: Sonographic imaging of the abdomen was performed. COMPARISON: None. FINDINGS: The liver is enlarged. There is hepatic steatosis. No focal hepatic lesion is seen. The gal lbladder is unremarkable. The kidneys, pancreas, spleen, aorta and inferior vena cava are unremarkabl e. IMPRESSION: 1. Hepatomegaly and hepatic steatosis. 2. No acute sonographic finding. Electronically signed by: Ivette Hoang MD (08/26/2020 9:45 AM) [id number]
== END ==
LOC: US 09:07
PROVIDERS: ATTEND Internal Medicine Gastroenterology
DX: K76.0 Fatty (change of) liver, not elsewhere classified (principal); R16.0 Hepatomegaly, not elsewhere classified; K29.80 Duodenitis without bleeding; K29.70 Gastritis, unspecified, without bleeding; R11.0 Nausea; R14.0 Abdominal distension (gaseous); R68.81 Early satiety
CPT/HCPCS: 76700

== ENCOUNTER → 2020-09-23 | Outpatient (CLI) | payer BC ==
[2020-02-15 10:10] VITALS: BP 127/88
[~2020-09-23] VITALS: Ht 165.1 cm; Wt 68.0 kg
[~2020-09-23] MED LIST changes: +SINCALIDE 1.36 MCG in IV NORMAL SALINE 50ML 30 ML IV ONE
--- NOTE | 2020-09-23 13:56 | RAD ---
Hepatobiliary Scan: History: Right upper quadrant pain. Technique: 5.5 mCi technetium 99m Choletec was administered intravenously and spot views were obtain ed on the gamma camera for a Nuclear Medicine hepatobiliary scan. 1.4 mcg of CCK drip was administered over 30 minutes and the region of interest was drawn around the gallbladder and gallbladder ejection fraction was calculated. Findings: There is rapid uptake of activity from the blood pool and concentration in the liver. Activity seen i n the gallbladder and small bowel. There is a slow response of the gallbladder to CCK and the gallbladder ejection fraction is 21% which is low. Impression: Poor gallbladder function suggesting biliary dyskinesia. Electronically signed by: Subhash Greer III, MD (09/23/2020 1:54 PM) [facility]
== END ==
LOC: NM 11:22
PROVIDERS: ATTEND Internal Medicine Gastroenterology
DX: R10.12 Left upper quadrant pain (principal); K29.70 Gastritis, unspecified, without bleeding; R11.0 Nausea; R14.0 Abdominal distension (gaseous); R68.81 Early satiety
CPT/HCPCS: 78227; A9537; J2805

== ENCOUNTER 2021-02-27 19:15 | Emergency (ER) | payer BC ==
[~2021-02-27] VITALS: Ht 165.1 cm; Wt 70.0 kg
[~2021-02-27 19:15] MED LIST changes: -SCOP1PAT11 TP; +SCOP1PAT12 TP; -SINCALIDE 1.36 MCG in IV NORMAL SALINE 50ML 30 ML IV ONE
[2021-02-27 19:54] VITALS: BP 151/94
[2021-02-27 20:31] LABS: U PREG PATIENT NEGATIVE (NEG)
[2021-02-27 20:45] LABS: BILIRUBIN,URINE NEG (NEG); CLARITY,URINE CLEAR; COLOR,URINE YELLOW; GLUCOSE,URINE NEG (NEG); UROBILINOGEN,URINE 0.2 mg/dL (0.2 mg/dL)
[2021-02-27 20:46] LABS: NITRITE,URINE POS (NEG)
[2021-02-27 20:47] LABS: BACTERIA,URINE MANY /HPF (0-FEW)
[2021-02-27 20:48] LABS: SQUAMOUS EPITHELIAL CELL,UR FEW /LPF
[2021-02-27] MEDS ORDERED: CIPR500T94 PO (21:06)
--- NOTE | 2021-02-27 21:06 | PHYS DOC ---
Past History Past Medical History: Diabetes, Fibromyalgia, Migraines, Other Additional Past Medical Histor: Bulging Disk, back pain Past Surgical History: Cholecystectomy, Other Additional Past Surgical Histo: hernia Smoking: Non-smoker Alcohol Use: None Drug Use: None Adult General Chief Complaint Chief Complaint: PAIN ON URINATION HPI HPI Patient is a 35-year-old female who presents with a chief complaint of 2 days of dysuria. States she is had this before when she has had a urinary tract infection. Denies any recent traumas, travels, illnesses, fevers, chest pain, shortness of breath, abdominal pain, nausea, vomiting, hematuria. Review of Systems Review of Systems Review of systems otherwise unremarkable except noted in HPI Allergies Allergies Allergies Coded Allergies Type Severity Reaction Last Updated Verified adhesive Allergy Severe Rash 02/27/21 Yes morphine Allergy Severe Unknown 02/27/21 Yes Cephalosporins Allergy Intermediate Unknown 02/27/21 Yes hydrocodone Allergy Intermediate Unknown 02/27/21 Yes Penicillins Allergy Unknown Swelling 02/27/21 Yes sumatriptan Adverse Reaction Unknown 02/27/21 Yes Physical Exam Physical Exam Constitutional: Well developed, well nourished, no acute distress, non-toxic appearance. [] Cardiovascular:Heart rate regular rhythm, no murmur [] Lungs & Thorax: Bilateral breath sounds clear to auscultation [] Abdomen: soft, no tenderness, no masses, no pulsatile masses. [] Back: no CVA tenderness. [] Extremities: No tenderness, ROM intact, no edema. [] Neurologic: Alert and oriented X 3, no focal deficits noted. [] Psychologic: Affect normal, judgement normal, mood normal. [] Current Patient Data Vital Signs Vital Signs Date Time Temp Pulse Resp B/P (MAP) Pulse Ox O2 Delivery O2 Flow Rate FiO2 02/27/21 19:54 98.8 83 18 151/94 (113) 99 Room Air Lab Results Laboratory Tests Test 02/27/21 20:00 Urine Collection Type Unknown Urine Color Yellow Urine Clarity Clear Urine pH 6.0 Urine Specific [place] 1.020 Urine Protein 30 mg/dl (NEG-TRACE) Urine Glucose (UA) Neg mg/dL (NEG) Urine Ketones (Stick) Neg mg/dL (NEG) Urine Blood Mod (NEG) Urine Nitrite Pos (NEG) Urine Bilirubin Neg (NEG) Urine Urobilinogen Dipstick 0.2 mg/dL (0.2 mg/dL) Urine Leukocyte Esterase Trace (NEG) Urine RBC 3-5 /HPF (0-2) Urine WBC 5-10 /HPF (0-4) Urine Squamous Epithelial Cells Few /LPF Urine Bacteria Many /HPF (0-FEW) Urine Test Negative (NEG) EKG EKG [] Radiology/Procedures Radiology/Procedures [] Heart Score C/O Chest Pain: No Risk Factors: Risk Factors: DM, Current or recent (<one month) smoker, HTN, HLP, family history of CAD, obesity. Risk Scores: Risk Factors: DM, Current or recent (<one month) smoker, HTN, HLP, family history of CAD, obesity. Course & Med Decision Making Course & Med Decision Making Patient is a 35-year-old female presents with dysuria Vital signs notable for hypertension. Physical exam noted above. Urinalysis with negative . UA notable for leukocyte esterase and nitrite positive UTI. Started on Keflex in the ED. Discussed all findings with patient. Advised on symptom management at home. Advised to follow-up in the morning with primary care physician and set up a follow-up. Gave return precautions to the ED. Patient grateful, verbalized understanding and agreed with plan of discharge. [] Dragon Disclaimer Dragon Disclaimer This electronic medical record was generated, in whole or in part, using a voice recognition dictation system. Departure Departure: Impression: Primary Impression: Urinary tract infection Disposition: HOME / SELF CARE / HOMELESS Condition: GOOD Referrals: ELIZA VILLAREAL MD (PCP) Patient Instructions: Urinary Tract Infection Additional Instructions: Thank you for coming into the emergency department tonight and allowing us to take care of you. Please read the attached information to go over some of the things we discussed. Please take your antibiotics as prescribed and until gone. You can use Tylenol and ibuprofen as needed as well. Please follow-up in the morning with your primary care physician to set up a follow-up visit for reevaluation. Please come back to the ED with new or concerning symptoms as discussed. Scripts Ciprofloxacin Hcl (CIPRO) 500 Mg Tablet 1 TAB PO DAILY for UTI for 5 Days, #5 TAB 0 Refills Prov: NATHAN ADAN MD 02/27/21 NATHAN ADAN MD Feb 27, 2021 21:06
[2021-02-27] MEDS ORDERED: PHENAZOPYRIDINE 100 MG TABLET. ONE (21:14)
[2021-02-27] MEDS ORDERED: PHENAZOPYRIDINE 100 MG TABLET. PO ONE (21:30)
[2021-02-27] MEDS ORDERED: CIPROFLOXACIN HCL 500 MG TABLET PO ONE (21:30)
== END 2021-02-27 21:22 | disposition home or self-care (01) ==
LOC: ER 19:15
DX: N39.0 Urinary tract infection, site not specified (principal); E11.9 Type 2 diabetes mellitus without complications; M79.7 Fibromyalgia; G43.909 Migraine, unspecified, not intractable, without status migrainosus; Z90.49 Acquired absence of other specified parts of digestive tract; Z88.5 Allergy status to narcotic agent; Z88.0 Allergy status to penicillin; Z88.1 Allergy status to other antibiotic agents; Z88.8 Allergy status to other drugs, medicaments and biological substances
CPT/HCPCS: 81001; 81025; 87077; 87086; 87186; 99283

== ENCOUNTER 2021-05-06 09:50 | Emergency (ER) | payer BC ==
[~2021-05-06] VITALS: Ht 165.1 cm; Wt 72.0 kg
[~2021-05-06 09:50] MED LIST changes: +CIPR500T94 PO; -CYCL-331 PO; +CYCL10TA19 PO
[2021-05-06] MEDS ORDERED: ONDANSETRON ODT 4 MG TAB.RAPDIS PO ONE (10:15)
[2021-05-06] MEDS ORDERED: ONDANSETRON PF 4 MG/2 ML VIAL. IVP ONE (10:30)
[2021-05-06 10:52] LABS: BASO % 0 % (0-3); EOS # 0.1 x10^3/uL (0.0-0.7); EOS % 1 % (0-3); HEMOGLOBIN 13.3 g/dL (12.0-15.5); LYMPH % 17 % (24-48); MEAN CORPUSCULAR HEMOGLOBIN 31 pg (25-35); MEAN CORPUSCULAR HGB CONC 34 g/dL (31-37); MEAN CORPUSCULAR VOLUME 91 fL (79-100); MONO # 0.5 x10^3/uL (0.0-1.1); MONO % 4 % (0-9); NEUT # 9.5 x10^3uL (1.8-7.7); NEUT % 78 % (31-73); PLATELET COUNT 202 x10^3/uL (140-400); RED CELL DISTRIBUTION WIDTH 13.1 % (11.5-14.5); WHITE BLOOD COUNT 12.2 x10^3/uL (4.0-11.0)
--- NOTE | 2021-05-06 10:53 | RAD ---
Single view of the chest. 05/06/2021 10:43 AM Indication: Reason: Shortness of breath with cough / Spl. Instructions: / History: Comparison: Chest radiograph December 28, 2018 Findings: There is no focal consolidation. There is no pleural effusion or pneumothorax. The cardiome diastinal silhouette and pulmonary vasculature are within normal limits. No acute osseous abnormaliti es are seen. Impression: No evidence of acute cardiopulmonary process. Electronically signed by: Kalpesh Tyson MD (05/06/2021 10:51 AM) [id number]
--- NOTE | 2021-05-06 11:03 | PHYS DOC ---
Past History Past Medical History: Diabetes, Fibromyalgia, Migraines, Other Additional Past Medical Histor: Bulging Disk, back pain, fiberomylai (TOMAS LEAL APRN) Past Surgical History: Cholecystectomy, Other Additional Past Surgical Histo: hernia (TOMAS LEAL APRN) Smoking: Non-smoker Alcohol Use: Occasionally Drug Use: None (TOMAS LEAL APRN) Adult General Chief Complaint Chief Complaint: NAUSEA/VOMITING/DIARRHEA HPI HPI Patient is a 36-year-old female presents to the emergency department complaining of runny nose, nonproductive cough with shortness of breath for the past week and a half. Patient reports waking up today with nausea and vomited 2 times noting yellow vomitus, denied seeing blood in her vomitus. Patient denies abdominal pains, diarrhea or constipation. Denies urinary tract type signs and symptoms to include pressure with urination, increased urinary frequency, burning with urination, denies vaginal discharge, denies STI concerns. Denies pain at this time. Reports people where she works have had the COVID-19 virus recently, patient denies loss of taste or loss of smell, denies fever or chills. Patient reports her last menstrual cycle 3 weeks ago with normal duration of flow. Patient denies other physical complaints or physical concerns. (TOMAS LEAL APRN) Review of Systems Review of Systems 14 body systems of review of systems have been reviewed. See HPI for pertinent positives and negative responses, otherwise all other systems are negative, nonpertinent or noncontributory. Constitutional: Negative except as outlined in HPI above. Skin: Negative except as outlined in HPI above. Eyes: Negative except as outlined in HPI above. HENT: Negative except as outlined in HPI above. Respiratory: Negative except as outlined in HPI above. Cardiovascular: Negative except as outlined in HPI above. GI: Negative except as outlined in HPI above. : Negative except as outlined in HPI above. Musculoskeletal: Negative except as outlined in HPI above. Integument: Negative except as outlined in HPI above. Neurologic: Negative except as outlined in HPI above. Endocrine: Negative except as outlined in HPI above. Lymphatic: Negative except as outlined in HPI above. Psychiatric: Negative except as outlined in HPI above. (TOMAS LEAL APRN) Current Medications Current Medications Current Medications Medications (Trade) Dose Ordered Sig/Trevor Start Time Stop Time Status Last Admin Dose Admin Ondansetron HCl (Zofran Odt) 4 mg 1X ONCE 05/06/21 10:15 05/06/21 10:18 DC Ondansetron HCl (Zofran) 4 mg 1X ONCE 05/06/21 10:30 05/06/21 10:31 DC 05/06/21 10:29 4 MG (TOMAS LEAL APRN) Allergies Allergies Allergies Coded Allergies Type Severity Reaction Last Updated Verified adhesive Allergy Severe Rash 02/27/21 Yes morphine Allergy Severe Unknown 02/27/21 Yes Cephalosporins Allergy Intermediate Unknown 02/27/21 Yes hydrocodone Allergy Intermediate Unknown 02/27/21 Yes Penicillins Allergy Unknown Swelling 02/27/21 Yes sumatriptan Adverse Reaction Unknown 02/27/21 Yes (TOMAS LEAL APRN) Physical Exam Physical Exam Constitutional: Well developed, well nourished, no acute distress, non-toxic appearance. 36-year-old female in no apparent distress. HENT: Normocephalic, atraumatic. Eyes: Conjunctiva normal, no discharge. Neck: Normal range of motion, no stridor. Cardiovascular: No cyanosis appreciated, distal cap refill less than 2 seconds. Lungs & Thorax: Patient is in no respiratory distress, no audible adventitious lung sounds appreciated. Abdomen: Nontender, no abnormalities noted. Skin: Warm, dry, no erythema, no rash. Back: No tenderness, no deformities. Extremities: No tenderness, no cyanosis, no clubbing, ROM intact, no edema. Neurologic: Alert and oriented X 3, normal motor function, normal sensory function, no focal deficits noted. Psychologic: Affect normal, judgement normal, mood normal. (TOMAS LEAL APRN) Current Patient Data Vital Signs Vital Signs Date Time Temp Pulse Resp B/P (MAP) Pulse Ox O2 Delivery O2 Flow Rate FiO2 05/06/21 10:05 98.3 79 18 136/83 (100) 98 Room Air Lab Results Laboratory Tests Test 05/06/21 10:20 05/06/21 10:36 White Blood Count 12.2 x10^3/uL (4.0-11.0) H Red Blood Count 4.30 x10^6/uL (3.50-5.40) Hemoglobin 13.3 g/dL (12.0-15.5) Hematocrit 39.0 % (36.0-47.0) Mean Corpuscular Volume 91 fL (79-100) Mean Corpuscular Hemoglobin 31 pg (25-35) Mean Corpuscular Hemoglobin Concent 34 g/dL (31-37) Red Cell Distribution Width 13.1 % (11.5-14.5) Platelet Count 202 x10^3/uL (140-400) Neutrophils (%) (Auto) 78 % (31-73) H Lymphocytes (%) (Auto) 17 % (24-48) L Monocytes (%) (Auto) 4 % (0-9) Eosinophils (%) (Auto) 1 % (0-3) Basophils (%) (Auto) 0 % (0-3) Neutrophils # (Auto) 9.5 x10^3uL (1.8-7.7) H Lymphocytes # (Auto) 2.0 x10^3/uL (1.0-4.8) Monocytes # (Auto) 0.5 x10^3/uL (0.0-1.1) Eosinophils # (Auto) 0.1 x10^3/uL (0.0-0.7) Basophils # (Auto) 0.0 x10^3/uL (0.0-0.2) POC Urine HCG, Qualitative hcg negative (Negative) (TOMAS LEAL APRN) EKG EKG [] (TOMAS LEAL APRN) Radiology/Procedures Radiology/Procedures PROCEDURE: CHEST AP ONLY Single view of the chest. 05/06/2021 10:43 AM Indication: Reason: Shortness of breath with cough / Spl. Instructions: / History: Comparison: Chest radiograph December 28, 2018 Findings: There is no focal consolidation. There is no pleural effusion or pneumothorax. The cardiomediastinal silhouette and pulmonary vasculature are within normal limits. No acute osseous abnormalities are seen. Impression: No evidence of acute cardiopulmonary process. Electronically signed by: Kalpesh Tyson MD (05/06/2021 10:51 AM) [id number] (TOMAS LEAL APRN) Heart Score C/O Chest Pain: No Risk Factors: Risk Factors: DM, Current or recent (<one month) smoker, HTN, HLP, family history of CAD, obesity. Risk Scores: Risk Factors: DM, Current or recent (<one month) smoker, HTN, HLP, family history of CAD, obesity. (TOMAS LEAL APRN) Course & Med Decision Making Course & Med Decision Making Pertinent Labs and Imaging studies reviewed. (See chart for details) 36-year-old female, vital signs reviewed, presents emerged from concerning cold- like signs and symptoms for the past week and a half. Patient does report contact with coworkers that have been diagnosed with a COVID-19 virus, patient's physical examination is unremarkable, the patient is not febrile, the patient is not ill in appearance, will order COVID-19 testing, chest x-ray, CBC, CMP, urinalysis assay. The patient's rapid Covid testing negative, chest x-ray and lab work nonconcerning for acute process, the patient's urine is not infected, she is not . Discussed with patient diagnosis of viral syndrome, continue to force fluids, take Tylenol and or Motrin at home for discomfort. Strict follow- up with primary care this week for reevaluation and ongoing management of symptoms. Patient is amenable to ED discharge planning. Discussed with the patient all findings and diagnostic testing as well as the need to follow-up with their primary care provider for further evaluation and treatment or return to the ED if any new or worsening symptoms. Strict return precautions were also discussed at length, the patient voiced understanding and agreement with the discharge planning. The patient was nontoxic in appearance, in no apparent distress, and hemodynamically stable at the time of disposition. (TOMAS LEAL APRN) Course & Med Decision Making I was the Attending physician on the above date of service of this patient. This patient was evaluated, examined, treated, and dispositioned from the emergency department by the mid-level practitioner. Although I was working at the time , no assistance was requested. Electronically signed, Lea Flowers DO (LEA FLOWERS DO) Issa Disclaimer Dragon Disclaimer This electronic medical record was generated, in whole or in part, using a voice recognition dictation system. (TOMAS LEAL APRN) Departure Departure: Impression: Primary Impression: Viral syndrome Disposition: HOME / SELF CARE / HOMELESS Condition: GOOD Referrals: ELIZA VILLAREAL MD (PCP) Patient Instructions: Viral Syndrome Additional Instructions: You were seen today in the emergency department for common cold-like signs and symptoms. A chest x-ray along with lab work and a urinalysis along with Covid testing was done today. As we discussed you do not have the Covid virus, your lab work and chest x-ray did not show any concerning findings. Please follow-up with your primary care physician Dr. Villareal this week for ongoing symptoms. You may use [id number] cough and cold type medications to help with discomfort and symptoms. Thank you for visiting our Emergency Department. It was a pleasure taking care of you today in the emergency department and we appre ciate you trusting us with your care. If any additional problems come up don't hesitate to return to visit us. Please follow up with your primary care provider so they can plan additional care if needed and know about the problem that you had. If symptoms worsen come back to the Emergency Department. Any concerning symptoms that start such as chest pain, shortness of air, weakness or numbness on one side of the body, running high fevers or any other concerning symptoms return to the ER. EMERGENCY DEPARTMENT GENERAL DISCHARGE INSTRUCTIONS Thank you for coming to [facility] (ED) today and trusting us with you care. We trust that you had a positivie experience in our Emergency Department. If you wish to speak to the department management, you may call the director at [phone]. YOUR FOLLOW UP INSTRUCTIONS ARE FOLLOWS: 1. Do you have a private Doctor? If you do not have a private doctor, please ask for a resource list of physicians or clinics that may be able to assist you with follow up care. 2. The Emergency Physician has interpreted your x-rays. The X-Ray specialist will also review them. If there is a change in the findings, you will be notified in 48 hours when at all possible. 3. A lab test or culture has been done, your results will be reviewed and you will be notified if you need a change in treatment. ADDITIONAL INSTRUCTIONS AND INFORMATION: 1. Your care today has been supervised by a physician who is specially trained in emergency care. Many problems require more than one evaluation for a complete diagnosis and treatment. We recommend that you schedule your follow up appointment as recommended to ensure complete treatment of you illness or injury. If you are unable to obtain follow up care and continue to have a problem, or if your condition worsens, we recommend that you return to the ED. 2. We are not able to safely determine your condition over the phone nor are we able to give sound medical advice over the phone. For these safety reasons, if you call for medical advice we will ask you to come to the ED for further evaluation. 3. If you have any questions regarding these discharge instructions please call the ED at [phone]. SAFETY INFORMATION: In the interest of safety, wellness, and injury prevention; we encourage you to wear your sealbelt, if you smoke; quite smoking, and we encourage family to use a pro tective helmet for bicycling and other sporting events that present an increased risk for head injury. IF YOUR SYMPTOMS WORSEN OR NEW SYMPTOMS DEVELOP, OR YOU HAVE CONCERNS ABOUT YOUR CONDITION; OR IF YOUR CONDITION WORSENS WHILE YOU ARE WAITING FOR YOUR FOLLOW UP APPOINTMENT; EITHER CONTACT YOUR PRIMARY CARE DOCTOR, THE PHYSICIAN WHOSE NAME AND NUMBER YOU WERE GIVEN, OR RETURN TO THE ED IMMEDIATELY. TOMAS LEAL APRN May 06, 2021 11:03 LEA FLOWERS DO May 07, 2021 07:01
[2021-05-06 11:04] LABS: CREATININE 0.7 mg/dL (0.6-1.0); GFR 94.7; POTASSIUM 4.6 mmol/L (3.5-5.1)
[2021-05-06 11:08] LABS: ALBUMIN 3.3 g/dL (3.4-5.0); ALBUMIN/GLOBULIN RATIO 0.9 (1.0-1.7); BACTERIA,URINE FEW /HPF (0-FEW); BILIRUBIN,URINE NEG (NEG); CLARITY,URINE HAZY; COLOR,URINE YELLOW; GLUCOSE,URINE NEG (NEG); MAGNESIUM 1.8 mg/dL (1.8-2.4); NITRITE,URINE NEG (NEG); PHOSPHORUS 3.1 mg/dL (2.6-4.7); RBC,URINE OCC /HPF (0-2); SQUAMOUS EPITHELIAL CELL,UR MANY /LPF; TOTAL BILIRUBIN 0.5 mg/dL (0.2-1.0); TOTAL PROTEIN 6.8 g/dL (6.4-8.2); UROBILINOGEN,URINE 0.2 mg/dL (0.2 mg/dL)
[2021-05-06 12:24] VITALS: BP 107/66
== END 2021-05-06 12:34 | disposition home or self-care (01) ==
LOC: ER 09:50
DX: B34.9 Viral infection, unspecified (principal); E11.9 Type 2 diabetes mellitus without complications; M79.7 Fibromyalgia; G43.909 Migraine, unspecified, not intractable, without status migrainosus; Z20.822 Contact with and (suspected) exposure to COVID-19; Z90.49 Acquired absence of other specified parts of digestive tract; Z88.8 Allergy status to other drugs, medicaments and biological substances; Z88.5 Allergy status to narcotic agent; Z88.1 Allergy status to other antibiotic agents
CPT/HCPCS: 71045; 80053; 81001; 81025; 83735; 84100; 85025; 87426; 96374; 99284; C9803; J2405; U0003

== ENCOUNTER 2021-09-09 09:47 | Emergency (ER) | payer BC ==
[~2021-09-09] VITALS: Ht 165.1 cm; Wt 73.7 kg
[~2021-09-09 09:47] MED LIST changes: -EMPA10TA PO; +EMPA10TA3 PO
[2021-09-09] MEDS ORDERED: KETOROLAC 15 MG/ML VIAL. ONE (10:15)
[2021-09-09] MEDS ORDERED: IV NORMAL SALINE 1,000ML 1,000 ML IV ONE (10:15)
[2021-09-09] MEDS ORDERED: KETOROLAC 30 MG/ML VIAL. IM ONE (10:15)
--- NOTE | 2021-09-09 10:33 | PHYS DOC ---
Past History Past Medical History: Diabetes, Fibromyalgia, Migraines, Other Additional Past Medical Histor: Bulging Disk, back pain (MEENU DE LA CRUZ) Past Surgical History: Cholecystectomy, Other Additional Past Surgical Histo: hernia, L knee ACL repair (MEENU DE LA CRUZ) Smoking: Non-smoker Alcohol Use: Occasionally Drug Use: None (MEENU DE LA CRUZ) General Adult EDM: Chief Complaint: CHEST PAIN HPI: HPI: Patient is a 36 year old female with past medical history that includes diabetes, chronic back pain, left knee pain who presents with anterior chest wall tightness that began around 0800 this morning. Patient states that her pain began on her way to work. She states that it is a feeling of diffuse chest tightness that radiates to her back and up the back of her neck. Patient denies all associated symptoms including diaphoresis, dizziness, nausea, vomiting, anxiety. Patient denies daily medication for high cholesterol or high blood pressure. She did take a hydrocodone before work this morning for her chronic knee pain. (MEENU DE LA CRUZ) Review of Systems: Review of Systems: ROS negative or noncontributory except as mentioned in HPI. (MEENU DE LA CRUZ) Current Medications: Current Meds: Current Medications Medications (Trade) Dose Ordered Sig/Trevor Start Time Stop Time Status Last Admin Dose Admin Ketorolac Tromethamine (Toradol 15mg Vial) 15 mg STK-MED ONCE 09/09/21 10:15 09/09/21 10:15 DC Ketorolac Tromethamine (Toradol 30mg Vial) 30 mg 1X ONCE 09/09/21 10:15 09/09/21 10:16 UNV 09/09/21 10:15 30 MG Sodium Chloride 1,000 ml @ 1,000 mls/hr 1X ONCE 09/09/21 10:15 09/09/21 11:14 UNV 09/09/21 10:15 1,000 MLS/HR (MEENU DE LA CRUZ) Allergies: Allergies: Allergies Coded Allergies Type Severity Reaction Last Updated Verified adhesive Allergy Severe Rash 02/27/21 Yes morphine Allergy Severe Unknown 02/27/21 Yes Cephalosporins Allergy Intermediate Unknown 02/27/21 Yes hydrocodone Allergy Intermediate Unknown 02/27/21 Yes Penicillins Allergy Unknown Swelling 02/27/21 Yes sumatriptan Adverse Reaction Unknown 02/27/21 Yes (MEENU DE LA CRUZ) Physical Exam: PE: Constitutional: Well developed, well nourished, no acute distress, non-toxic appearance. HENT: Normocephalic, atraumatic, bilateral external ears normal, nose normal. Eyes: EOMI, conjunctiva normal, no discharge. Neck: Normal range of motion, no stridor. Cardiovascular: Heart rate regular rhythm, no murmur. Lungs & Thorax: Equal thoracic expansion, anterior chest wall tender on palpation, bilateral breath sounds clear to auscultation. Skin: Warm, dry, no erythema, no rash. Back: No step-off, no tenderness. Neurologic: Alert and orientedx4, no focal deficits noted. (MEENU DE LA CRUZ) Current Patient Data: Vital Signs: Vital Signs Date Time Temp Pulse Resp B/P (MAP) Pulse Ox O2 Delivery O2 Flow Rate FiO2 09/09/21 11:20 73 16 122/65 (84) 98 Room Air 09/09/21 09:53 98.4 65 16 123/66 (85) 98 Room Air (MEENU DE LA CRUZ) EKG: EKG: EKG Interpreted by Dr. Olivares at 0955: Regular rate and rhythm 72 bpm with no ectopic beats. QT 370 ms/QTc 407 ms. No STEMI. (MEENU DE LA CRUZ) Radiology/Procedures: Radiology/Procedures: PROCEDURE: CHEST PA & LATERAL EXAMINATION: XR CHEST 2V CLINICAL HISTORY: Chest tightness. EXAM DATE/TIME: 09/09/2021 10:05 AM COMPARISON: 05/06/2021 FINDINGS: Lines, Tubes, and Devices: None. Cardiomediastinal Silhouette: Within normal limits. Lungs and Pleura: No evidence of focal airspace consolidation or pleural effusion. Pulmonary vasculature unremarkable. Bones and Soft Tissues: No acute osseous abnormality. Cholecystectomy clips. IMPRESSION: No evidence of acute cardiopulmonary abnormality or significant interval change. Electronically signed by: Patricio Shaffer DO (09/09/2021 11:07 AM) [id number] (MEENU DE LA CRUZ) Heart Score: C/O Chest Pain: Yes HEART Score for Chest Pain: HEART Score for Chest Pain Response (Comments) Value History Slighlty/Non-Suspicious 0 ECG Normal 0 Age < 45 0 Risk Factors 1 or 2 Risk Factors 1 Troponin < Normal Limit 0 Total 1 Risk Factors: Risk Factors: DM Risk Scores: Score 0 - 3: 2.5% MACE over next 6 weeks - Discharge Home Score 4 - 6: 20.3% MACE over next 6 weeks - Admit for Clinical Observation Score 7 - 10: 72.7% MACE over next 6 weeks - Early Invasive Strategies (MEENU DE LA CRUZ) Course & Med Decision Making: Course & Med Decision Making Pertinent Labs and Imaging studies reviewed. (See chart for details) Patient is a 36-year-old female who presents with what seems to be chest wall pain. Reviewed chart from admission for chest pain in 2019. Entire cardiac work-up at that time was unremarkable. Cardiac work-up today does not reveal any acute pathology, labs reveal slight hypomagnesemia. Patient was reassured that there is no evidence of acute cardiac pathology at this time. She is instructed to follow-up with her primary care doctor and to revisit Dr. Klein, if she has further concerns. Return precautions were provided. Patient understands and is agreeable to discharge plan. (MEENU DE LA CRUZ) Dragon Disclaimer: Dragon Disclaimer: This electronic medical record was generated, in whole or in part, using a voice recognition dictation system. (MEENU DE LA CRUZ) Attending Co-Sign The patient was seen and interviewed as well as examined at the bedside. The chart was reviewed. The case was discussed. Agree with the plan of care. (CARLITOS OLIVARES DO) Departure Departure: Impression: Primary Impression: Anterior chest wall pain Additional Impression: Hypomagnesemia Disposition: 01 HOME / SELF CARE / HOMELESS Condition: STABLE Referrals: ELIZA VILLAREAL MD (PCP) Patient Instructions: Chest Wall Pain, [id number] Additional Instructions: EMERGENCY DEPARTMENT GENERAL DISCHARGE INSTRUCTIONS Thank you for coming to [facility] (ED) today and trusting us with you care. We trust that you had a positive experience in our Emergency Department. If you wish to speak to the department management, you may call the director at [phone]. YOUR FOLLOW UP INSTRUCTIONS ARE FOLLOWS: 1. Follow up with your primary care doctor. If you do not have a primary doctor, please ask for a resource list of physicians or clinics that may be able to assist you with follow up care. 2. The emergency provider has interpreted your imaging studies, if any were ordered. The radiology preventive medicine specialist also reviewed them. If there is a change in the findings, you will be notified in 48 hours when at all possible. 3. If a lab test or culture has been done, your results will be reviewed and you will be notified if you need a change in treatment. 4. Follow instructions verbalized to you and refer to the printouts if needed. ADDITIONAL INSTRUCTIONS AND INFORMATION: 1. Your care today has been supervised by a physician who is specially trained in emergency care. Many problems require more than one evaluation for a complete diagnosis and treatment. We recommend that you schedule your follow up appointment as recommended to ensure complete treatment of you illness or injury. If you are unable to obtain follow up care and continue to have a problem, or if your condition worsens, we recommend that you return to the ED. 2. We are not able to safely determine your condition over the phone nor are we able to give sound medical advice over the phone. For these safety reasons, if you call for medical advice we will ask you to come to the ED for further evaluation. 3. If you have any questions regarding these discharge instructions please call the ED at [phone]. SAFETY INFORMATION: In the interest of safety, wellness, and injury prevention; we encourage you to wear your seat belt, if you smoke; quite smoking, and we encourage family to use a protective helmet for bicycling and other sporting events that present an increased risk for head injury. IF YOUR SYMPTOMS WORSEN OR NEW SYMPTOMS DEVELOP, OR YOU HAVE CONCERNS ABOUT YOUR CONDITION; OR IF YOUR CONDITION WORSENS WHILE YOU ARE WAITING FOR YOUR FOLLOW UP APPOINTMENT; EITHER CONTACT YOUR PRIMARY CARE DOCTOR, THE PHYSICIAN WHOSE NAME AND NUMBER YOU WERE GIVEN, OR RETURN TO THE ED IMMEDIATELY. MEENU DE LA CRUZ Sep 09, 2021 10:33 CARLITOS OLIVARES DO Sep 11, 2021 18:31
[2021-09-09 10:39] LABS: BASO % 0 % (0-3); EOS # 0.2 x10^3/uL (0.0-0.7); EOS % 2 % (0-3); HEMATOCRIT 39.3 % (36.0-47.0); HEMOGLOBIN 13.5 g/dL (12.0-15.5); LYMPH # 2.3 x10^3/uL (1.0-4.8); LYMPH % 26 % (24-48); MEAN CORPUSCULAR HEMOGLOBIN 31 pg (25-35); MEAN CORPUSCULAR HGB CONC 34 g/dL (31-37); MEAN CORPUSCULAR VOLUME 89 fL (79-100); MONO # 0.4 x10^3/uL (0.0-1.1); MONO % 5 % (0-9); NEUT # 5.7 x10^3uL (1.8-7.7); NEUT % 66 % (31-73); PLATELET COUNT 244 x10^3/uL (140-400); RED BLOOD COUNT 4.43 x10^6/uL (3.50-5.40); RED CELL DISTRIBUTION WIDTH 13.2 % (11.5-14.5); WHITE BLOOD COUNT 8.7 x10^3/uL (4.0-11.0)
[2021-09-09 10:47] LABS: CALCIUM 8.7 mg/dL (8.5-10.1); CREATININE 0.6 mg/dL (0.6-1.0); GFR 113.1; POTASSIUM 4.5 mmol/L (3.5-5.1)
[2021-09-09 10:52] LABS: ALBUMIN 3.2 g/dL (3.4-5.0); MAGNESIUM 1.7 mg/dL (1.8-2.4); TOTAL BILIRUBIN 0.2 mg/dL (0.2-1.0); TOTAL PROTEIN 6.4 g/dL (6.4-8.2)
--- NOTE | 2021-09-09 11:10 | RAD ---
EXAMINATION: XR CHEST 2V CLINICAL HISTORY: Chest tightness. EXAM DATE/TIME: 09/09/2021 10:05 AM COMPARISON: 05/06/2021 FINDINGS: Lines, Tubes, and Devices: None. Cardiomediastinal Silhouette: Within normal limits. Lungs and Pleura: No evidence of focal airspace consolidation or pleural effusion. Pulmonary vasculat ure unremarkable. Bones and Soft Tissues: No acute osseous abnormality. Cholecystectomy clips. IMPRESSION: No evidence of acute cardiopulmonary abnormality or significant interval change. Electronically signed by: Patricio Shaffer DO (09/09/2021 11:07 AM) [id number]
[2021-09-09 11:20] VITALS: BP 122/65
--- NOTE | 2021-09-09 11:24 | EKG ---
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
[2021-09-09] MEDS ORDERED: MAGNESIUM CHLORIDE ER 64 MG TABLET.ER PO SCH (11:45)
== END 2021-09-09 12:07 | disposition home or self-care (01) ==
LOC: ER 09:47
DX: E83.42 Hypomagnesemia (principal); R07.89 Other chest pain; E11.9 Type 2 diabetes mellitus without complications; M79.7 Fibromyalgia; G43.909 Migraine, unspecified, not intractable, without status migrainosus; G89.29 Other chronic pain; Z88.8 Allergy status to other drugs, medicaments and biological substances; Z88.5 Allergy status to narcotic agent; Z88.1 Allergy status to other antibiotic agents; Z88.0 Allergy status to penicillin
CPT/HCPCS: 36415; 71046; 80053; 83735; 84484; 85025; 93005; 96360; 96361; 96372; 99285; J1885; J7030